=== PATIENT | female | born 1995 | race Caucasian/White ===

== ENCOUNTER 2018-10-02 10:12 | Emergency (ER) | payer MEDICAID ==
[~2018-10-02] VITALS: Ht 162.6 cm; Wt 58.6 kg
[2018-10-02 10:17] VITALS: BP 126/64
--- NOTE | 2018-10-02 10:28 | NUR ---
PT AMBULATES TO BED 3
--- NOTE | 2018-10-02 10:30 | NUR ---
BIB SELF, C/O PELVIC PAIN X 2 DAYS. PATIENT REPORTS INTERMITTENT PAIN 5/10 AT THIS TIME. N/V X 1 MONTH. DENIES URINARY COMPLAINTS. LMP 08/13/17. STOPPED TAKING CONTROL 06/2018. HX: OVARIAN CYSTS, HEART MURMUR
--- NOTE | 2018-10-02 11:11 | NUR ---
PATIENT BEING EVALUATED BY DR KOVACS
[2018-10-02 14:04] LABS: APPEARANCE,URINE HAZY (CLEAR); BILIRUBIN,URINE NEGATIVE (NEGATIVE); BLOOD, URINE NEGATIVE (NEGATIVE); COLOR,URINE YELLOW (YELLOW); LEUKOCYTE ESTERASE ,URINE NEGATIVE (NEGATIVE); NITRITE, URINE NEGATIVE (NEGATIVE); UGLUCOSE NEGATIVE (NEGATIVE)
[2018-10-02 14:31] VITALS: BP 116/64
== END 2018-10-02 14:32 | disposition home or self-care (01) ==
LOC: MED 10:12
DX: N83.202 Unspecified ovarian cyst, left side (principal); Z88.0 Allergy status to penicillin
CPT/HCPCS: 36415; 76830; 81003; 81025; 84702; 99284; Q0092

== ENCOUNTER 2018-10-11 23:04 | Emergency (ER) | payer MEDICAID ==
[~2018-10-11] VITALS: Ht 162.6 cm; Wt 60.3 kg
[2018-10-11 23:10] VITALS: BP 122/42
--- NOTE | 2018-10-11 23:21 | NUR ---
PT AMBULATED TO BED 11, URINE OBTAINED
--- NOTE | 2018-10-11 23:30 | NUR ---
PT BIB C/O R/L LOWER QUADRANT ABD PAIN STABBING PAIN 9/10 STARTING LAST NIGHT. 9 WEEKS , , IS GETTING CARE. ALSO STATES SHE FEELS DIZZINESS, N/V. DENIES CP/SOB. LMP 08/09/19, TOÑO 05/16/19. DENIES, DISCHARGE OR BLEEDING. LUNG SOUNDS CLEAR BL. BOWEL SOUNDS ACTIVE X4 QUAD. PT IN GOWN IN BED; BED IN LOWER LOCKED POSITION. ER MD MADE AWARE OF PT STATUS. HX---NONE MEDS-- VITAMINS
[2018-10-12 00:01] LABS: BASOPHILS % (AUTO) 0.3 % (0.0-2.0); EOSINOPHILS # (AUTO) 0.1 K/uL (0-0.4); EOSINOPHILS % (AUTO) 0.6 % (0.0-4.0); HEMATOCRIT 41.8 % (36-48); HEMOGLOBIN 13.7 g/dL (12.0-16.0); LYMPHOCYTES # (AUTO) 3.1 K/uL (2.5-16.5); LYMPHOCYTES % (AUTO) 29.4 % (20.5-51.1); MEAN CORPUSCULAR HEMOGLOBIN 30 pg (27-31); MEAN CORPUSCULAR HGB CONC 33 g/dL (33-37); MEAN CORPUSCULAR VOLUME 90.2 fL (80-94); MONOCYTES # (AUTO) 0.8 K/uL (0.8-1.0); MONOCYTES % (AUTO) 7.8 % (1.7-9.3); NEUTROPHILS # (AUTO) 6.4 K/uL (1.8-7.7); NEUTROPHILS % (AUTO) 61.9 % (42.2-75.2); PLATELET COUNT (AUTO) 183 K/uL (140-450); RED BLOOD CELL COUNT(AUTO) 4.64 MIL/uL (4.20-5.40); WHITE BLOOD COUNT (AUTO) 10.4 K/uL (4.8-10.8)
[2018-10-12 00:04] LABS: APPEARANCE,URINE CLEAR (CLEAR); BILIRUBIN,URINE NEGATIVE (NEGATIVE); BLOOD, URINE NEGATIVE (NEGATIVE); COLOR,URINE YELLOW (YELLOW); LEUKOCYTE ESTERASE ,URINE TRACE (NEGATIVE); NITRITE, URINE NEGATIVE (NEGATIVE); PH,URINE 6.5 (5.0-9.0); UGLUCOSE NEGATIVE (NEGATIVE)
[2018-10-12 00:17] LABS: RBC,URINE 0-5 /HPF (0-5); URINE AMORPHOUS URATE 1+ /HPF (None Seen)
[2018-10-12 00:19] LABS: ANION GAP 11.1 (8-16); CARBON DIOXIDE 26.6 mmol/L (21-32); CREATININE 0.7 mg/dL (0.6-1.3); POTASSIUM 3.7 mmol/L (3.5-5.1)
[2018-10-12 01:25] VITALS: BP 125/51
== END 2018-10-12 01:25 | disposition home or self-care (01) ==
LOC: MED 23:04
DX: O23.41 Unspecified infection of urinary tract in pregnancy, first trimester (principal); Z3A.09 9 weeks gestation of pregnancy; Z88.0 Allergy status to penicillin
CPT/HCPCS: 36415; 76801; 80048; 81001; 81025; 84702; 85025; 86900; 86901; 87086; 99284; Q0092

== ENCOUNTER 2018-11-01 18:57 | Emergency (ER) | payer MEDICAID ==
[~2018-11-01] VITALS: Ht 157.5 cm; Wt 54.4 kg
[2018-11-01 19:05] VITALS: BP 132/54
--- NOTE | 2018-11-01 19:08 | NUR ---
TO LOBBY A/W BED, JUDITH ORTEGA NOTED.
--- NOTE | 2018-11-01 19:40 | NUR ---
BIB SELF WITH LOWER ABD PAIN DURING EARLY . PATIENT STATES SHE IS NAUSEOUS ALL DAY AND VOMITS ONCE EVERY MORNING AND NIGHT. STATES SHE ALSO HAS SHARP PAINS IN HER LOWER ABD INTERMITTENTLY DAILY. STATES THIS IS HER SECOND BUT SHE DID NOT HAVE THESE SYMPTOMS WHEN SHE WAS WITH SHE WAS WITH HER SON.
--- NOTE | 2018-11-01 19:44 | NUR ---
PT AMBULATED TO ER BED 06
--- NOTE | 2018-11-01 20:06 | NUR ---
Dr. Stevens evaluating patient at bedside.
--- NOTE | 2018-11-01 20:07 | NUR ---
US AT BEDSIDE.
[2018-11-01 20:45] LABS: BASOPHILS % (AUTO) 0.3 % (0.0-2.0); EOSINOPHILS # (AUTO) 0.1 K/uL (0-0.4); EOSINOPHILS % (AUTO) 0.7 % (0.0-4.0); HEMATOCRIT 40.7 % (36-48); HEMOGLOBIN 13.6 g/dL (12.0-16.0); LYMPHOCYTES # (AUTO) 1.7 K/uL (2.5-16.5); LYMPHOCYTES % (AUTO) 19.2 % (20.5-51.1); MEAN CORPUSCULAR HEMOGLOBIN 30 pg (27-31); MEAN CORPUSCULAR HGB CONC 34 g/dL (33-37); MEAN CORPUSCULAR VOLUME 90.1 fL (80-94); MONOCYTES # (AUTO) 0.7 K/uL (0.8-1.0); MONOCYTES % (AUTO) 7.8 % (1.7-9.3); NEUTROPHILS # (AUTO) 6.4 K/uL (1.8-7.7); PLATELET COUNT (AUTO) 176 K/uL (140-450); RED BLOOD CELL COUNT(AUTO) 4.51 MIL/uL (4.20-5.40); RED CELL DISTRIBUTION WIDTH 13.9 % (11.6-13.7); WHITE BLOOD COUNT (AUTO) 8.9 K/uL (4.8-10.8)
[2018-11-01 20:53] LABS: APPEARANCE,URINE CLEAR (CLEAR); BILIRUBIN,URINE NEGATIVE (NEGATIVE); BLOOD, URINE NEGATIVE (NEGATIVE); COLOR,URINE YELLOW (YELLOW); LEUKOCYTE ESTERASE ,URINE TRACE (NEGATIVE); NITRITE, URINE NEGATIVE (NEGATIVE); UGLUCOSE NEGATIVE (NEGATIVE)
[2018-11-01 21:07] LABS: RBC,URINE 0-5 /HPF (0-5)
[2018-11-01 21:08] LABS: WBC,URINE 0-5 /HPF (0-5)
[2018-11-01] MEDS ORDERED: ACETAMINOPHEN EXTRA STRENGTH 500 MG TAB PO ONE (21:30)
[2018-11-01 22:01] VITALS: BP 132/54
--- NOTE | 2018-11-01 22:02 | NUR ---
Patient discharged with v/s stable. Written and verbal after care instructions given and explained. Patient alert, oriented and verbalized understanding of instructions. Ambulatory with steady gait. All questions addressed prior to discharge. ID band removed. Patient advised to follow up with PMD. Rx of MACROBID, DICLEGIS given. Patient educated on indication of medication including possible reaction and side effects. Opportunity to ask questions provided and answered.
== END 2018-11-01 22:02 | disposition home or self-care (01) ==
LOC: MED 18:57
DX: O20.8 Other hemorrhage in early pregnancy (principal); O98.811 Other maternal infectious and parasitic diseases complicating pregnancy, first trimester; R82.71 Bacteriuria; Z3A.01 Less than 8 weeks gestation of pregnancy; Z88.0 Allergy status to penicillin
CPT/HCPCS: 36415; 76801; 81001; 81025; 84702; 85025; 86900; 86901; 99284; Q0092

== ENCOUNTER 2018-11-26 22:19 | Emergency (ER) | payer MEDICAID ==
[~2018-11-26] VITALS: Ht 162.6 cm; Wt 61.3 kg
--- NOTE | 2018-11-26 22:23 | NUR ---
PATIENT PRESENTS TO ED WITH VAG BLEEDING STARTED LAST , WITH LOWER ABD PAIN, NAUSEA, 11 WEEKS, LMP AUG 25 . DENIES N/V/D; SKIN IS PINK/WARM/DRY; AAOX4 WITH EVEN AND STEADY GAIT; LUNGS CLEAR BL; HR EVEN AND REGULAR; PT DENIES ANY FEVER, CP, SOB, OR COUGH AT THIS TIME; PATIENT STATES PAIN OF 4/10 AT THIS TIME; VSS; PATIENT POSITIONED FOR COMFORT; HOB ELEVATED; BEDRAILS UP X2; BED DOWN. ER MD MADE AWARE OF PT STATUS.
[2018-11-26 22:26] VITALS: BP 117/68
--- NOTE | 2018-11-26 22:26 | NUR ---
TO BED # 02 AMBULATORY, REPORT GIVEN TO [facility] RN
[2018-11-26 22:50] LABS: APPEARANCE,URINE SL CLOUDY (CLEAR); BILIRUBIN,URINE NEGATIVE (NEGATIVE); BLOOD, URINE NEGATIVE (NEGATIVE); COLOR,URINE YELLOW (YELLOW); LEUKOCYTE ESTERASE ,URINE TRACE (NEGATIVE); NITRITE, URINE NEGATIVE (NEGATIVE); PH,URINE 6.5 (5.0-9.0); UGLUCOSE NEGATIVE (NEGATIVE)
[2018-11-26 23:06] LABS: BASOPHILS % (AUTO) 0.4 % (0.0-2.0); EOSINOPHILS # (AUTO) 0.1 K/uL (0-0.4); EOSINOPHILS % (AUTO) 0.6 % (0.0-4.0); HEMOGLOBIN 13.6 g/dL (12.0-16.0); MONOCYTES % (AUTO) 5.4 % (1.7-9.3); RED BLOOD CELL COUNT(AUTO) 4.39 MIL/uL (4.20-5.40)
[2018-11-26 23:09] LABS: RBC,URINE 0-5 /HPF (0-5); URINE AMORPHOUS URATE 4+ /HPF (None Seen)
[2018-11-26 23:13] LABS: HEMATOCRIT 40.1 % (36-48); LYMPHOCYTES # (AUTO) 2.9 K/uL (2.5-16.5); LYMPHOCYTES % (AUTO) 28.2 % (20.5-51.1); MEAN CORPUSCULAR HEMOGLOBIN 31 pg (27-31); MEAN CORPUSCULAR HGB CONC 34 g/dL (33-37); MEAN CORPUSCULAR VOLUME 91.4 fL (80-94); MONOCYTES # (AUTO) 0.6 K/uL (0.8-1.0); NEUTROPHILS # (AUTO) 6.7 K/uL (1.8-7.7); NEUTROPHILS % (AUTO) 65.4 % (42.2-75.2); PLATELET COUNT (AUTO) 177 K/uL (140-450); RED CELL DISTRIBUTION WIDTH 13.9 % (11.6-13.7); WHITE BLOOD COUNT (AUTO) 10.2 K/uL (4.8-10.8)
[2018-11-26 23:56] VITALS: BP 117/68
--- NOTE | 2018-11-26 23:57 | NUR ---
Patient discharged with v/s stable. Written and verbal after care instructions given and explained. Patient alert, oriented and verbalized understanding of instructions. Ambulatory with steady gait. All questions addressed prior to discharge. ID band removed. Patient advised to follow up with PMD. Rx of mACROBID AND FLAGYL given. Patient educated on indication of medication including possible reaction and side effects. Opportunity to ask questions provided and answered.
== END 2018-11-26 23:57 | disposition home or self-care (01) ==
LOC: MED 22:19
DX: O23.41 Unspecified infection of urinary tract in pregnancy, first trimester (principal); O23.591 Infection of other part of genital tract in pregnancy, first trimester; B96.89 Other specified bacterial agents as the cause of diseases classified elsewhere; Z3A.12 12 weeks gestation of pregnancy; Z88.0 Allergy status to penicillin
CPT/HCPCS: 36415; 76815; 81001; 85025; 87086; 87210; 99284; Q0092

== ENCOUNTER 2019-10-15 16:05 | Emergency (ER) | payer MEDICAID ==
[~2019-10-15] VITALS: Ht 162.6 cm; Wt 61.9 kg
[2019-10-15 16:35] VITALS: BP 137/83
--- NOTE | 2019-10-15 17:15 | NUR ---
PT C/O 3 EPISODES OF VOMITING TODAY, EPIGASTRIC PAIN, AND NON-RADIATING LOWER ABDOMINAL PAIN, H/A X 3 DAYS. DENIES DIARRHEA OR EVER AT THIS TIME. NO MEDS TAKEN. PATIENT STATES PAIN OF 9/10 AT THIS TIME; VSS; PATIENT POSITIONED FOR COMFORT; HOB ELEVATED; BEDRAILS UP X1; BED DOWN. ER MD MADE AWARE OF PT STATUS.
[2019-10-15] MEDS ORDERED: NACL 0.9% 1,000 ML IV SCH (17:39)
[2019-10-15] MEDS ORDERED: ALUMINUM HYD/MAG/SIMETHICONE 30 ML, DICYCLOMINE HCL LIQUID 20 MG, LIDOCAINE VISCOUS 2% ... PO ONE ×3 (17:40)
[2019-10-15] MEDS ORDERED: ONDANSETRON 4 MG/2 ML VIAL IVP ONE (17:40)
[2019-10-15] MEDS ORDERED: LIDOCAINE VISCOUS 2% 20 ML UDC ONE (18:04)
[2019-10-15] MEDS ORDERED: ALUMINUM HYD/MAG/SIMETHICONE 30 ML UDC ONE (18:05)
[2019-10-15] MEDS ORDERED: DICYCLOMINE HCL LIQUID 10 MG/5 ML UDC ONE (18:05)
[2019-10-15 18:16] LABS: BASOPHILS % (AUTO) 0.6 % (0.0-2.0); EOSINOPHILS % (AUTO) 0.3 % (0.0-4.0); HEMATOCRIT 43.4 % (36-48); HEMOGLOBIN 14.9 g/dL (12.0-16.0); LYMPHOCYTES % (AUTO) 38.3 % (20.5-51.1); MEAN CORPUSCULAR HEMOGLOBIN 31 pg (27-31); MEAN CORPUSCULAR HGB CONC 34 g/dL (33-37); MONOCYTES # (AUTO) 0.5 K/uL (0.8-1.0); MONOCYTES % (AUTO) 6.3 % (1.7-9.3); NEUTROPHILS # (AUTO) 4.3 K/uL (1.8-7.7); NEUTROPHILS % (AUTO) 54.5 % (42.2-75.2); PLATELET COUNT (AUTO) 221 K/uL (140-450); RED BLOOD CELL COUNT(AUTO) 4.82 MIL/uL (4.20-5.40); RED CELL DISTRIBUTION WIDTH 13.2 % (11.6-13.7); WHITE BLOOD COUNT (AUTO) 7.9 K/uL (4.8-10.8)
--- NOTE | 2019-10-15 18:19 | NUR ---
JUICE AND JELLY PROVIDED TO PT PER DR. REYES'S ORDER.
[2019-10-15 18:23] LABS: APPEARANCE,URINE CLEAR (CLEAR); BILIRUBIN,URINE NEGATIVE (NEGATIVE); BLOOD, URINE 1+ (NEGATIVE); COLOR,URINE YELLOW (YELLOW); LEUKOCYTE ESTERASE ,URINE NEGATIVE (NEGATIVE); NITRITE, URINE POSITIVE (NEGATIVE); UGLUCOSE NEGATIVE (NEGATIVE)
[2019-10-15 18:28] LABS: ANION GAP 10.6 (8-16); CREATININE 0.8 mg/dL (0.6-1.3); POTASSIUM 3.6 mmol/L (3.5-5.1); TOTAL BILIRUBIN 0.5 mg/dL (0.0-1.0)
[2019-10-15 19:12] VITALS: BP 128/75
--- NOTE | 2019-10-15 19:12 | NUR ---
Patient discharged with v/s stable. Written and verbal after care instructions given and explained. Patient alert, oriented and verbalized understanding of instructions. Ambulatory with steady gait. All questions addressed prior to discharge. ID band removed. Patient advised to follow up with PMD. Rx of Tylenol, Zofran, and Keflex given. Patient educated on indication of medication including possible reaction and side effects. Opportunity to ask questions provided and answered.
== END 2019-10-15 19:12 | disposition home or self-care (01) ==
LOC: MED 16:05
DX: N39.0 Urinary tract infection, site not specified (principal); Z88.0 Allergy status to penicillin
CPT/HCPCS: 36415; 80053; 81001; 81025; 83690; 85025; 87086; 96361; 96374; 99283; J2405; J7030; 96360

== ENCOUNTER 2021-07-23 15:42 | Emergency (ER) | payer MEDICAID ==
[~2021-07-23] VITALS: Ht 162.6 cm; Wt 68.0 kg
[2021-07-23 15:51] VITALS: BP 126/79
--- NOTE | 2021-07-23 15:58 | NUR ---
PT AMB TO BED 8
--- NOTE | 2021-07-23 16:00 | NUR ---
25 y/o Female BIB self for c/o LLQ pressure-like abd pain. +N, denies V/D/CP at this time. + BS x 4 quadrants. LLQ tender to touch. No pulsation noted on abd. PmHx: Heart murmur, open heart sx as an infant Allergies: Denies Home meds: denies
[2021-07-23] MEDS ORDERED: ONDANSETRON 4 MG/2 ML VIAL IVP ONE (16:15)
[2021-07-23] MEDS ORDERED: NACL 0.9% 1,000 ML IV ONE (16:15)
--- NOTE | 2021-07-23 16:21 | NUR ---
Urine collected and walked down to lab. Dip results shown to ERMD.
--- NOTE | 2021-07-23 16:39 | NUR ---
Blood drawn and walked down to lab By Alberto
[2021-07-23] MEDS: ACETAMINOPHEN EXTRA STRENGTH 500 MG TAB PO ONE (16:41)
[2021-07-23 16:48] LABS: BASOPHILS % (AUTO) 0.5 % (0.0-2.0); EOSINOPHILS # (AUTO) 0.1 K/uL (0-0.4); EOSINOPHILS % (AUTO) 0.9 % (0.0-4.0); HEMATOCRIT 40.6 % (36-48); HEMOGLOBIN 13.7 g/dL (12.0-16.0); LYMPHOCYTES # (AUTO) 2.8 K/uL (2.5-16.5); LYMPHOCYTES % (AUTO) 31.7 % (20.5-51.1); MEAN CORPUSCULAR HEMOGLOBIN 30 pg (27-31); MEAN CORPUSCULAR HGB CONC 34 g/dL (33-37); MEAN CORPUSCULAR VOLUME 88.2 fL (80-94); MONOCYTES # (AUTO) 0.5 K/uL (0.8-1.0); NEUTROPHILS # (AUTO) 5.3 K/uL (1.8-7.7); NEUTROPHILS % (AUTO) 60.9 % (42.2-75.2); PLATELET COUNT (AUTO) 211 K/uL (140-450); RED CELL DISTRIBUTION WIDTH 13.6 % (11.6-13.7); WHITE BLOOD COUNT (AUTO) 8.7 K/uL (4.8-10.8)
[2021-07-23 16:50] LABS: APPEARANCE,URINE CLEAR (CLEAR); BILIRUBIN,URINE NEGATIVE (NEGATIVE); BLOOD, URINE 3+ (NEGATIVE); COLOR,URINE YELLOW (YELLOW); LEUKOCYTE ESTERASE ,URINE NEGATIVE (NEGATIVE); NITRITE, URINE NEGATIVE (NEGATIVE); UGLUCOSE NEGATIVE (NEGATIVE)
[2021-07-23 17:02] LABS: ALBUMIN 3.6 g/dL (3.4-5.0); ANION GAP 13.9 (8-16); CARBON DIOXIDE 26.9 mmol/L (21-32); CREATININE 0.6 mg/dL (0.6-1.3); POTASSIUM 3.8 mmol/L (3.5-5.1); TOTAL BILIRUBIN 0.1 mg/dL (0.0-1.0)
[2021-07-23 17:39] LABS: WBC,URINE NONE SEEN /HPF (0-5)
[2021-07-23] MEDS ORDERED: ACET-2619 PO (18:04)
[2021-07-23 18:10] VITALS: BP 122/74
== END 2021-07-23 18:13 | disposition home or self-care (01) ==
LOC: MED 15:42
DX: R10.32 Left lower quadrant pain (principal); R11.2 Nausea with vomiting, unspecified; Z79.899 Other long term (current) drug therapy; Z98.890 Other specified postprocedural states; Z88.0 Allergy status to penicillin
CPT/HCPCS: 36415; 76856; 80053; 81001; 81025; 83690; 84703; 85025; 93976; 99284; J7030; Q0092; J2405

== ENCOUNTER 2022-12-31 12:07 | Emergency (ER) | payer MEDICAID ==
[~2022-12-31] VITALS: Ht 162.6 cm; Wt 68.0 kg
[~2022-12-31 12:07] MED LIST: ACET-2619 PO
[2022-12-31 12:15] VITALS: BP 137/66
[2022-12-31] MEDS ORDERED: DEXAMETHASONE 10 MG/ML VIAL IM ONE (13:10)
[2022-12-31] MEDS ORDERED: BENZ-300 PO (14:11)
[2022-12-31] MEDS ORDERED: PROM118S5 PO (14:11)
[2022-12-31] MEDS ORDERED: ALBU0.0912 IH (14:11)
[2022-12-31] MEDS ORDERED: IBUP-2213 PO (14:11)
[2022-12-31] MEDS ORDERED: DEXAMETHASONE 10 MG/ML VIAL ONE (15:10)
--- NOTE | 2022-12-31 15:30 | NUR ---
Patient discharged with v/s stable. Written and verbal after care instructions given and explained. Patient verbalized understanding. Ambulatory with steady gait. All questions addressed prior to discharge. Advised to follow up with PMD. STATES FEELING BETTER. NO SOB. NO ACUTE DISTRESS. AWAKE AND ALERT.
== END 2022-12-31 15:30 | disposition home or self-care (01) ==
LOC: MED 12:07
DX: J06.9 Acute upper respiratory infection, unspecified (principal); J04.0 Acute laryngitis; R03.0 Elevated blood-pressure reading, without diagnosis of hypertension; Z98.890 Other specified postprocedural states; Z79.899 Other long term (current) drug therapy; Z79.1 Long term (current) use of non-steroidal anti-inflammatories (NSAID); Z88.0 Allergy status to penicillin
CPT/HCPCS: 70360; 71045; 81025; 87081; 96372; 99284; J1100

== ENCOUNTER 2023-02-21 20:21 | Emergency (ER) | payer MEDICAID ==
[~2023-02-21] VITALS: Ht 162.6 cm; Wt 72.6 kg
[~2023-02-21 20:21] MED LIST changes: +ALBU0.0912 IH; +BENZ-300 PO; +IBUP-2213 PO; +PROM118S5 PO
[2023-02-21 20:50] VITALS: BP 120/51; PULSE 84; RESP 16; TEMP 97.8; O2SAT 99
--- NOTE | 2023-02-21 20:50 | NUR ---
to bed via w/c
[2023-02-21] MEDS ORDERED: ACETAMINOPHEN 325 MG TAB PO ONE (21:10)
[2023-02-21 21:28] LABS: BASOPHILS # (AUTO) 0.1 K/uL (0.00-0.22); BASOPHILS % (AUTO) 0.8 % (0.0-2.0); EOSINOPHILS % (AUTO) 0.3 % (0.0-4.0); HEMATOCRIT 41.6 % (36-48); HEMOGLOBIN 14.1 g/dL (12.0-16.0); LYMPHOCYTES # (AUTO) 3.1 K/uL (2.5-16.5); LYMPHOCYTES % (AUTO) 22.9 % (20.5-51.1); MEAN CORPUSCULAR HEMOGLOBIN 30 pg (27-31); MEAN CORPUSCULAR HGB CONC 34 g/dL (33-37); MONOCYTES # (AUTO) 0.9 K/uL (0.8-1.0); MONOCYTES % (AUTO) 6.4 % (1.7-9.3); NEUTROPHILS # (AUTO) 9.3 K/uL (1.8-7.7); NEUTROPHILS % (AUTO) 69.6 % (42.2-75.2); PLATELET COUNT (AUTO) 227 K/uL (140-450); RED BLOOD CELL COUNT(AUTO) 4.73 MIL/uL (4.20-5.40); RED CELL DISTRIBUTION WIDTH 13.6 % (11.6-13.7); WHITE BLOOD COUNT (AUTO) 13.4 K/uL (4.8-10.8)
[2023-02-21 21:36] LABS: ANION GAP 11.3 (8-16); CARBON DIOXIDE 26.7 mmol/L (21-32); CREATININE 0.7 mg/dL (0.6-1.3)
--- NOTE | 2023-02-21 21:37 | NUR ---
pt urinated on bed lewis. pt tolerated well.
--- NOTE | 2023-02-21 22:22 | NUR ---
pt back from XR. safety measures are in place.
[2023-02-21] MEDS ORDERED: KETOROLAC 30 MG/ML VIAL IM ONE (23:15)
[2023-02-21] MEDS ORDERED: CYCLOBENZAPRINE 10 MG TAB PO ONE (23:15)
[2023-02-21] MEDS ORDERED: CYCL-711 PO (23:47)
[2023-02-21] MEDS ORDERED: NAPR-54 PO (23:47)
[2023-02-22 00:02] VITALS: BP 118/60; PULSE 69; RESP 16; TEMP 97.8; O2SAT 100
--- NOTE | 2023-02-22 00:02 | NUR ---
Patient discharged for Acute Back Pain. Pain is tolerable and decreasing. Written and verbal after care instructions given and explained. Patient alert, oriented and verbalized understanding of instructions. Ambulatory with steady gait. All questions addressed prior to discharge. ID band removed. Patient advised to follow up with PMD. Rx of Flexeril and Naproxen given. Patient educated on indication of medication including possible reaction and side effects. Opportunity to ask questions provided and answered.
== END 2023-02-22 00:02 | disposition home or self-care (01) ==
LOC: MED 20:21
DX: S06.9X1A Unspecified intracranial injury with loss of consciousness of 30 minutes or less, initial encounter (principal); M54.2 Cervicalgia; M54.50 Low back pain, unspecified; M25.572 Pain in left ankle and joints of left foot; M25.562 Pain in left knee; Z88.0 Allergy status to penicillin; Z88.1 Allergy status to other antibiotic agents; Z79.899 Other long term (current) drug therapy; W10.8XXA Fall (on) (from) other stairs and steps, initial encounter; Y93.89 Activity, other specified; Y92.89 Other specified places as the place of occurrence of the external cause; Y99.8 Other external cause status
CPT/HCPCS: 36415; 70450; 72125; 72131; 73562; 73610; 80048; 81025; 84703; 85025; 96372; 99285; J1885

== ENCOUNTER 2023-06-24 16:29 | Emergency (ER) | payer SELFPAY ==
[~2023-06-24] VITALS: Ht 162.6 cm; Wt 75.3 kg
[~2023-06-24 16:29] MED LIST changes: +CYCL-711 PO; +NAPR-54 PO
[2023-06-24 16:35] VITALS: BP 126/77; PULSE 67; RESP 20; TEMP 98.8; O2SAT 99
[2023-06-24 17:13] LABS: APPEARANCE,URINE CLEAR (CLEAR); BILIRUBIN,URINE NEGATIVE (NEGATIVE); BLOOD, URINE NEGATIVE (NEGATIVE); COLOR,URINE YELLOW (YELLOW); LEUKOCYTE ESTERASE ,URINE NEGATIVE (NEGATIVE); NITRITE, URINE NEGATIVE (NEGATIVE); PROTEIN,URINE TRACE (NEGATIVE); UGLUCOSE NEGATIVE (NEGATIVE)
[2023-06-24] MEDS ORDERED: KETOROLAC 60 MG/2 ML VIAL IM ONE (17:20)
[2023-06-24] MEDS ORDERED: IBUP-2213 PO (17:29)
[2023-06-24] MEDS ORDERED: ACET-8905 PO (17:29)
[2023-06-24 17:40] VITALS: O2SAT 99
[2023-06-24 17:54] VITALS: BP 126/77; PULSE 67; RESP 20; TEMP 98.8
[2023-06-24 18:16] VITALS: O2SAT 99
== END 2023-06-24 18:23 | disposition home or self-care (01) ==
LOC: MED 16:29
DX: R51.9 Headache, unspecified (principal); Z79.899 Other long term (current) drug therapy
CPT/HCPCS: 70450; 81003; 81025; 96372; 99285; J1885

== ENCOUNTER 2023-10-06 12:03 | Emergency (ER) | payer MEDICAID ==
[~2023-10-06] VITALS: Ht 162.6 cm; Wt 75.9 kg
[~2023-10-06 12:03] MED LIST changes: +ACET-8905 PO
[2023-10-06 12:07] VITALS: BP 126/71; PULSE 74; RESP 20; TEMP 97.3; O2SAT 98
[2023-10-06 12:33] LABS: BASOPHILS # (AUTO) 0.1 K/uL (0.00-0.22); BASOPHILS % (AUTO) 1.1 % (0.0-2.0); EOSINOPHILS # (AUTO) 0.1 K/uL (0-0.4); EOSINOPHILS % (AUTO) 1.6 % (0.0-4.0); HEMATOCRIT 42.5 % (36-48); HEMOGLOBIN 14.6 g/dL (12.0-16.0); LYMPHOCYTES # (AUTO) 3.4 K/uL (2.5-16.5); MEAN CORPUSCULAR HEMOGLOBIN 30 pg (27-31); MEAN CORPUSCULAR HGB CONC 34 g/dL (33-37); MEAN CORPUSCULAR VOLUME 87.7 fL (80-94); MONOCYTES # (AUTO) 0.7 K/uL (0.8-1.0); MONOCYTES % (AUTO) 7.4 % (1.7-9.3); NEUTROPHILS # (AUTO) 4.8 K/uL (1.8-7.7); NEUTROPHILS % (AUTO) 52.9 % (42.2-75.2); PLATELET COUNT (AUTO) 208 K/uL (140-450); RED BLOOD CELL COUNT(AUTO) 4.85 MIL/uL (4.20-5.40); RED CELL DISTRIBUTION WIDTH 13.7 % (11.6-13.7); WHITE BLOOD COUNT (AUTO) 9.2 K/uL (4.8-10.8)
[2023-10-06 12:51] LABS: ALBUMIN 3.5 g/dL (3.4-5.0); ANION GAP 9.1 (8-16); CALCIUM 8.9 mg/dL (8.5-10.1); CARBON DIOXIDE 29.9 mmol/L (21-32); CREATININE 0.7 mg/dL (0.6-1.3); TOTAL BILIRUBIN 0.2 mg/dL (0.0-1.0); TOTAL PROTEIN, SERUM 8.4 g/dL (6.4-8.2)
[2023-10-06] MEDS: KETOROLAC 30 MG/ML VIAL IM ONE (15:29)
[2023-10-06] MEDS: PROCHLORPERAZINE 10 MG/2 ML VIAL IM ONE (15:29)
[2023-10-06] MEDS: ACETAMINOPHEN EXTRA STRENGTH 500 MG TAB PO ONE (15:29)
[2023-10-06] MEDS ORDERED: IBUP-2213 PO (17:29)
[2023-10-06 17:43] VITALS: BP 134/83; PULSE 64; RESP 16; TEMP 98; O2SAT 99
== END 2023-10-06 17:46 | disposition home or self-care (01) ==
LOC: MED 12:03
DX: G43.109 Migraine with aura, not intractable, without status migrainosus (principal); Z79.899 Other long term (current) drug therapy; Z88.0 Allergy status to penicillin; Z88.1 Allergy status to other antibiotic agents
CPT/HCPCS: 36415; 70450; 80053; 81025; 85025; 96372; 99285; J0780; J1885; Q0163

== ENCOUNTER 2024-03-11 04:25 | Emergency (ER) | payer MEDICAID, OTHER ==
[~2024-03-11] VITALS: Ht 162.6 cm; Wt 77.1 kg
[~2024-03-11 04:25] MED LIST changes: +NAPR-337 PO; -NAPR-54 PO
[2024-03-11 04:34] VITALS: BP 138/68; PULSE 86; RESP 18; TEMP 98; O2SAT 98
[2024-03-11] MEDS ORDERED: LIDOCAINE MPF 1% 5 ML ONE (05:05)
[2024-03-11] MEDS ORDERED: cefTRIAXone 1,000 MG VIAL ONE (05:05)
[2024-03-11] MEDS: cefTRIAXone 1,000 MG in LIDOCAINE MPF 1% 2.1 ML IM ONE (05:26)
[2024-03-11] MEDS: KETOROLAC 60 MG/2 ML VIAL IM ONE (05:27)
[2024-03-11] MEDS ORDERED: NAPR-337 PO (06:09)
[2024-03-11] MEDS ORDERED: CLIN300C73 PO (06:09)
[2024-03-11 06:10] VITALS: BP 118/79; PULSE 76; RESP 16; TEMP 98; O2SAT 98
== END 2024-03-11 06:10 | disposition home or self-care (01) ==
LOC: MED 04:25
DX: S09.93XA Unspecified injury of face, initial encounter (principal); Z79.1 Long term (current) use of non-steroidal anti-inflammatories (NSAID); Z79.2 Long term (current) use of antibiotics; Z79.899 Other long term (current) drug therapy; Z88.0 Allergy status to penicillin; Z88.1 Allergy status to other antibiotic agents; X58.XXXA Exposure to other specified factors, initial encounter; Y93.89 Activity, other specified; Y92.89 Other specified places as the place of occurrence of the external cause; Y99.8 Other external cause status
CPT/HCPCS: 96372; 99284; J0696; J1885; J2001